=== PATIENT | female | born 1975 | race Caucasian/White ===

== ENCOUNTER 2019-03-01 15:10 | Emergency (ER) | payer BC ==
[~2019-03-01] VITALS: Ht 170.2 cm; Wt 66.0 kg
[2019-03-01] MEDS ORDERED: SODIUM CHLORIDE 0.9% 1,000 ML IV ONE (15:59)
[2019-03-01 16:22] LABS: BASOPHILS % 0.5 % (0.0-2.0); EOSINOPHILS % 0.3 % (0.0-5.0); HEMATOCRIT. 29.8 % (36.0-48.0); LYMPHOCYTES % 16.8 % (20.0-50.0); MEAN CORPUSCULAR HEMOGLOBIN 30.8 pg (28.0-32.0); MEAN CORPUSCULAR VOLUME 92.1 fL (81.0-99.0); MEAN PLATELET VOLUME 8.5 fl (7.4-10.4); MONOCYTES % 6.1 % (2.0-8.0); NEUTROPHILS % 76.3 % (40.0-76.0); PLATELET 285 x1000/uL (130-400); RED BLOOD CELL COUNT 3.24 mill/uL (4.2-5.4); RED CELL DISTRIBUTION WIDTH 13.1 % (11.6-14.6)
[2019-03-01 16:25] LABS: CHLORIDE 109 mEq/L (98-107)
[2019-03-01] MEDS ORDERED: ACETAMINOPHEN 325MG TABLET PO ONE (16:45)
[2019-03-01] MEDS ORDERED: MORPHINE SULFATE 4 MG/ML CPJ (NOT FOR IM USE) IV ONE (16:45)
[2019-03-01] MEDS ORDERED: KETOROLAC 30MG/ML VIAL IV ONE (16:45)
[2019-03-01] MEDS ORDERED: ONDANSETRON HCL 4MG/2ML INJ IV ONE (16:45)
[2019-03-01 16:48] LABS: B-HCG QUANTITATIVE 6915 mIU/mL (<3)
[2019-03-01 19:00] VITALS: BP 109/63
== END 2019-03-01 19:10 | disposition home or self-care (01) ==
LOC: ER 15:10
DX: O03.4 Incomplete spontaneous abortion without complication (principal); Z98.890 Other specified postprocedural states; Z88.1 Allergy status to other antibiotic agents
CPT/HCPCS: 36415; 76801; 76817; 80053; 84702; 85025; 86850; 86900; 86901; 96374; 99284; J1885; J7030